=== PATIENT | male | born 1985 | race Caucasian/White ===

== ENCOUNTER 2017-05-14 17:36 | Emergency (ER) | payer OTHER ==
[2017-05-14] MEDS ORDERED: ADENOSINE 6 MG/2 ML VIAL ONE (17:42)
[2017-05-14] MEDS ORDERED: ADENOSINE 6 MG/2 ML VIAL IVP ONE (17:49)
--- NOTE | 2017-05-14 17:51 | CPEKG ---
Heart Rate: 107 RR Interval: 561 P-R Interval: 132 QRSD Interval: 108 QT Interval: 324 QTC Interval: 433 P [place]: 66 QRS [place]: 12 T Wave [place]: 74 EKG Severity - ABNORMAL ECG - EKG Impression: SINUS TACHYCARDIA EKG Impression: CONSIDER POSTERIOR INFARCT EKG Impression: BORDERLINE ST DEPRESSION, ANTEROLATERAL LEADS Electronically Signed By: Mihir Jo 14-May-2017 17:57:50
--- NOTE | 2017-05-14 17:53 | CPEKG ---
Heart Rate: 195 RR Interval: 308 P-R Interval: 88 QRSD Interval: 102 QT Interval: 256 QTC Interval: 461 P [place]: 0 QRS [place]: -18 T Wave [place]: 101 EKG Severity - ABNORMAL ECG - EKG Impression: SUPRAVENTRICULAR TACHYCARDIA EKG Impression: BORDERLINE LEFT AXIS DEVIATION EKG Impression: REPOLARIZATION ABNORMALITY, PROB RATE RELATED Electronically Signed By: Mihir Jo 14-May-2017 17:58:18
--- NOTE | 2017-05-14 18:02 | EDPHY ---
H & P Time Seen by Provider: 05/14/17 17:41 HPI/ROS: CHIEF COMPLAINT: Rapid heart rate HISTORY OF PRESENT ILLNESS: Patient is had these symptoms about 6 times since 2007 although the usually only last 1 or 2 min and go away. 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 This is associated with feeling terrible, no chest pain or shortness of breath. Lightheaded but no actual syncope. Symptoms severe and lasting about 10 min before arrival. REVIEW OF SYSTEMS: Eye: no change in vision ENT: no sore throat Cardiac: HPI Pulmonary: no cough or SOB Abdomen: no vomiting, diarrhea, abdominal pain Musculoskeletal: no back pain Skin: no rash Neuro: no headache Constitutional: no fever : no urinary symptoms A comprehensive 10 point review of systems is otherwise negative aside from elements mentioned in the history of present illness. 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 Eyes: No scleral icterus. ENT, Mouth: Normal mucous membranes. Respiratory: Normal respiratory effort, breath sounds equal, lungs are clear to auscultation. Cardiovascular: Tachycardic Gastrointestinal: Abdomen is soft and non tender. Neurological: Alert and oriented x3. Normally conversant. Face symmetric, normal movement and sensation in all extremities. Skin: Warm and dry, no rashes. Musculoskeletal: No peripheral edema and no joint swelling. No calf tenderness or swelling Psychiatric: Not agitated. Emergency Department course/MDM: The 1st EKG shows SVT heart rate 200. Adenosine 6 mg IV given, 2nd EKG shows sinus tachycardia rate 107. Observed in emergency department no recurrence of tachydysrhythmia. 1840: Results discussed, heart rate 72, asymptomatic, will follow up at [facility] was given copies of his EKGs. Smoking Status: Never smoked Constitutional: Initial Vital Signs Temperature (C) 36.6 C 05/14/17 17:39 Heart Rate 211 H 05/14/17 17:39 Respiratory Rate 22 H 05/14/17 17:39 Blood Pressure 144/95 H 05/14/17 17:39 O2 Sat (%) 99 05/14/17 17:39 O2 Delivery Mode Room Air Allergies/Adverse Reactions: No Known Allergies Allergy (Unverified 05/14/17 17:39) Home Medications: Medication Instructions Recorded Lisinopril 05/14/17 Medical Decision Making - Diagnostics EKG Interpretation: 12-lead EKG interpreted by me; official reading is in trace master. My interpretation is SVT rate 195 with left axis and repolarization abnormality 12-lead EKG interpreted by me; official reading is in trace master. My interpretation is sinus tachycardia rate [address] flattening. Differential Diagnosis: Differential diagnosis considered for narrow complex tachycardia including but not limited to various causes of sinus tachycardia, SVT, atrial flutter and atrial fibrillation. Critical Care Time: Critical care time spent by me, Dr. Jo, exclusively with the care of this patient was 20 minutes, exclusive of PA or RESIDENTIAL GAS HEAT TECHNICIAN time and exclusive of separate procedures. The organ system at risk was cardiovascular and I ordered IV adenosine, multiple diagnostics, serial exams; to stabilize the patient and prevent worsening of the patient's condition. - Data Points Laboratory Results: Laboratory Results 05/14/17 17:43 05/14/17 17:43 05/14/17 05/14/17 17:43 17:43 WBC 10.65 10^3/uL H 10^3/uL (3.80-9.50) RBC 5.33 10^6/uL 10^6/uL (4.40-6.38) Hgb 16.6 g/dL g/dL (13.7-17.5) Hct 45.7 % % (40.0-51.0) MCV 85.7 fL fL (81.5-99.8) MCH 31.1 pg pg (27.9-34.1) MCHC 36.3 g/dL g/dL (32.4-36.7) RDW 12.0 % % (11.5-15.2) Plt Count 292 10^3/uL 10^3/uL (150-400) MPV 9.9 fL fL (8.7-11.7) Neut % (Auto) 49.2 % % (39.3-74.2) Lymph % (Auto) 39.7 % % (15.0-45.0) [place] % (Auto) 7.4 % % (4.5-13.0) Eos % (Auto) 2.3 % % (0.6-7.6) Baso % (Auto) 0.8 % % (0.3-1.7) Nucleat RBC Rel Count 0.0 % % (0.0-0.2) Absolute Neuts (auto) 5.24 10^3/uL 10^3/uL (1.70-6.50) Absolute Lymphs (auto) 4.23 10^3/uL H 10^3/uL (1.00-3.00) Absolute Monos (auto) 0.79 10^3/uL 10^3/uL (0.30-0.80) Absolute Eos (auto) 0.24 10^3/uL 10^3/uL (0.03-0.40) Absolute Basos (auto) 0.09 10^3/uL 10^3/uL (0.02-0.10) Absolute Nucleated RBC 0.00 10^3/uL 10^3/uL (0-0.01) Immature Gran % 0.6 % % (0.0-1.1) Immature Gran # 0.06 10^3/uL 10^3/uL (0.00-0.10) Sodium 141 mEq/L mEq/L (134-144) Potassium 3.6 mEq/L mEq/L (3.5-5.2) Chloride 101 mEq/L mEq/L (97-110) Carbon Dioxide 22 mEq/l mEq/l (22-31) Anion Gap 18 mEq/L H mEq/L (8-16) BUN 19 mg/dL mg/dL (7-23) Creatinine 1.1 mg/dL mg/dL (0.7-1.3) Estimated GFR > 60 Glucose 100 mg/dL mg/dL (70-100) Calcium 10.1 mg/dL mg/dL (8.5-10.4) TSH 1.200 uIU/mL uIU/mL (0.465-4.680) Medications Given: Discontinued Medications Adenosine (Adenosine) 6 mg IVP EDNOW ONE Stop: 05/14/17 17:50 Last Admin: 05/14/17 17:49 Dose: 6 mg Departure - Departure Disposition: Home, Routine, Self-Care Clinical Impression: Supraventricular tachycardia Condition: Good Instructions: Supraventricular Tachycardia (ED) Additional Instructions: Follow-up with [facility] within the next week, bring EKGs to them for evaluation. Referrals: [facility] ,. [Edm Groups for Call Sched] - As per Instructions
[2017-05-14 18:09] LABS: % IMMATURE GRANULYOCYTES 0.6 % (0.0-1.1); ABSOLUTE IMMATURE GRANULOCYTES 0.06 10^3/uL (0.00-0.10); ADD DIFF? NO; ADD MORPH? NO; ADD SCAN? NO; ATYPICAL LYMPHOCYTE FLAG 0 (0-99); FRAGMENT RBC FLAG 0 (0-99); HEMATOCRIT 45.7 % (40.0-51.0); HEMOGLOBIN 16.6 g/dL (13.7-17.5); LEFT SHIFT FLG 0 (0-99); LIPEMIA HEMOLYSIS FLAG 90 (0-99); MEAN CELL HEMOGLOBIN 31.1 pg (27.9-34.1); MEAN CELL HEMOGLOBIN CONCENTR. 36.3 g/dL (32.4-36.7); MEAN CELL VOLUME 85.7 fL (81.5-99.8); MEAN PLATELET VOLUME 9.9 fL (8.7-11.7); PLATELET CLUMPS FLAG 0 (0-99); PLATELET COUNT 292 10^3/uL (150-400); RED BLOOD CELL COUNT 5.33 10^6/uL (4.40-6.38)
[2017-05-14 18:23] LABS: ANION GAP 18 mEq/L (8-16); CALCIUM 10.1 mg/dL (8.5-10.4); CARBON DIOXIDE 22 mEq/l (22-31); CHLORIDE 101 mEq/L (97-110); CREATININE 1.1 mg/dL (0.7-1.3); GLOMERULAR FILTRATION RATE > 60; GLUCOSE 100 mg/dL (70-100); POTASSIUM 3.6 mEq/L (3.5-5.2); SODIUM 141 mEq/L (134-144)
[2017-05-14 18:27] VITALS: RESP 16
[2017-05-14 19:06] VITALS: BP 138/85; PULSE 82; TEMP 98.4; O2SAT 97
== END 2017-05-14 19:23 | disposition home or self-care (01) ==
DX: I47.1 Supraventricular tachycardia (principal)
CPT/HCPCS: 96374; J0153